=== PATIENT | male | born 1945 | race Caucasian/White ===

== ENCOUNTER 2019-07-07 09:45 | Outpatient (CLI) | payer MEDICARE, BC ==
[2019-07-07 11:12] LABS: BASOPHILS # (AUTO) 0.06 x10^3/uL (0-0.1); BASOPHILS % (AUTO) 1 % (0-1); EOSINOPHILS # (AUTO) 0.04 x10^3/uL (0-0.4); EOSINOPHILS % (AUTO) 1 % (1-7); LYMPHOCYTES # (AUTO) 1.38 x10^3/uL (1-3.4); LYMPHOCYTES % (AUTO) 26 % (22-44); MD NO; MEAN CORPUSCULAR HGB CONC 33.3 g/dL (33.2-36.2); MEAN PLATELET VOLUME 7.6 fL (7.4-10.4); MONOCYTES # (AUTO) 0.51 x10^3/uL (0.2-0.8); MONOCYTES % (AUTO) 10 % (2-9); NEUTROPHILS # (AUTO) 3.35 x10^3/uL (1.8-6.8); NEUTROPHILS % (AUTO) 63 % (42-75); PLATELET COUNT 175 x10^3/uL (130-400); RED BLOOD COUNT 4.75 x10^6/uL (4.38-5.82); RED CELL DISTRIBUTION WIDTH 13.9 % (9.4-14.8)
[2019-07-07 11:23] LABS: INTERNATIONAL NORMALIZED RATIO 0.98 (0.93-1.1); PROTHROMBIN TIME 10.4 Seconds (9.6-11.5)
[2019-07-07 11:25] LABS: ALANINE AMINOTRANSFERASE 26 U/L (12-78); ALBUMIN 3.8 g/dL (3.4-5.0); ANION GAP 4 mmol/L (5-15); CHLORIDE 107 mmol/L (98-107); CREATININE 1.12 mg/dL (0.7-1.3)
[2019-07-07 11:27] LABS: ALKALINE PHOSPHATASE 57 U/L (45-117); BILIRUBIN,TOTAL 0.6 mg/dL (0.2-1.0); TOTAL PROTEIN 7.1 g/dL (6.4-8.2)
[2019-07-07] MEDS ORDERED: INSU100C SQ-INSULIN (12:47)
[2019-07-07] MEDS ORDERED: TAMS-11 PO (15:42)
[2019-07-07] MEDS ORDERED: ALBU90AE2 INH (15:42)
[2019-07-07] MEDS ORDERED: ASPI-496 PO (15:42)
[2019-07-07] MEDS ORDERED: ROSU40TA PO (15:42)
[2019-07-07] MEDS ORDERED: VALS160T3 PO (15:42)
[2019-07-07] MEDS ORDERED: LORA10TA75 PO (15:42)
== END 2019-07-07 23:59 | disposition home or self-care (01) ==
LOC: STAR 09:45
PROVIDERS: ATTEND Orthopaedic Surgery
DX: Z01.818 Encounter for other preprocedural examination (principal); M16.11 Unilateral primary osteoarthritis, right hip
CPT/HCPCS: 36415; 80053; 83036; 85025; 85610; 85730; 87081; 93005

== ENCOUNTER 2019-07-14 06:48 | Observation (INO) | payer MEDICARE, BC ==
[~2019-07-14] VITALS: Ht 175.3 cm; Wt 87.2 kg
[~2019-07-14 06:48] MED LIST: ACETAMINOPHEN 650 MG/20.3 ML UDC PO PRN; ALBU90AE2 INH; ASPI-496 PO; BISACODYL 10 MG SUPP PR PRN; DIPHENHYDRAMINE 25 MG CAPSULE PO PRN; EPINEPHRINE 1 MG/ML, 1ML ONE; HYDROcodone/APAP 5/325 TABLET PO PRN; INSU100C SQ-INSULIN; KETOROLAC 60 MG/2 ML ONE; LORA10TA75 PO; MAGNESIUM HYDROXIDE 8%, 30ML UDC PO PRN; ONDANSETRON 2MG/ML, 2ML IV PRN; ONDANSETRON 4 MG TABLET PO PRN; ROPIvacaine/PF 0.5%, 20 ML ONE; ROPIvacaine/PF 0.5%, 30 ML ONE; ROSU40TA PO; SENNA/DOCUSATE TABLET PO PRN; SODIUM CHLORIDE 0.9% 50 ML ONE; TAMS-11 PO; TRANEXAMIC ACID 100 MG/ML, 10ML ONE; VALS160T3 PO; VANCOMYCIN 1,000 MG ONE; ZOLPIDEM 5MG TABLET PO PRN
[2019-07-14] MEDS: INSULIN LISPRO 100 UNITS/ML, PEN SQ-INSULIN SCH ×4 (07:00→21:44)
[2019-07-14] MEDS ORDERED: FENTANYL PF 250 MCG/5ML ONE (07:20)
[2019-07-14] MEDS ORDERED: LACTATED RINGERS 1,000 ML IV SCH (07:35)
[2019-07-14 07:39] VITALS: BP 126/76
[2019-07-14] MEDS ORDERED: GABAPENTIN 300 MG CAPSULE PO ONE (08:00)
[2019-07-14] MEDS ORDERED: ACETAMINOPHEN 500 MG TABLET PO ONE (08:00)
[2019-07-14] MEDS ORDERED: hydrALAzine 20 MG/ML, 1ML ONE (08:22)
[2019-07-14] MEDS ORDERED: PROPOFOL 10 MG/ML, 20ML ONE (08:52)
[2019-07-14] MEDS ORDERED: CEFAZOLIN 1,000 MG ONE (08:52)
[2019-07-14] MEDS ORDERED: NEOSTIGMINE 1 MG/ML, 10ML ONE (08:52)
[2019-07-14] MEDS ORDERED: DEXAMETHASONE 4 MG/ML, 1ML ONE (08:52)
[2019-07-14] MEDS ORDERED: ONDANSETRON 2MG/ML, 2ML ONE (08:52)
[2019-07-14] MEDS ORDERED: GLYCOPYRROLATE 0.2MG/1ML, 5ML ONE (08:52)
[2019-07-14] MEDS ORDERED: LIDOCAINE-MPF 2% ,5ML ONE (08:52)
[2019-07-14] MEDS ORDERED: SUCCINYLCHOLINE 20 MG/ML, 10ML ONE (08:52)
[2019-07-14] MEDS ORDERED: ROCURONIUM 10MG/ML,5ML ONE (08:52)
[2019-07-14] MEDS ORDERED: OXYcodone 5 MG/5 ML ORAL.SOL UDC PO PRN (09:00)
[2019-07-14] MEDS ORDERED: HYDROmorphone 2 MG/ML, 1ML IVPush PRN (09:00)
[2019-07-14] MEDS ORDERED: PROMETHAZINE 25 MG/ML, 1ML IV PRN (09:00)
[2019-07-14] MEDS ORDERED: FENTANYL PF 100 MCG/2ML IV PRN (09:00)
[2019-07-14] MEDS ORDERED: hydrALAzine 20 MG/ML, 1ML IV PRN (09:00)
[2019-07-14] MEDS ORDERED: MIDAZOLAM 1 MG/ML, 2ML IV PRN (09:00)
[2019-07-14] MEDS: VALSARTAN 160 MG TABLET PO SCH (09:00)
[2019-07-14] MEDS ORDERED: METOPROLOL 1 MG/ML, 5ML IV PRN (09:00)
[2019-07-14] MEDS: LORATADINE 10 MG TABLET PO SCH (09:00)
[2019-07-14] MEDS ORDERED: MEPERIDINE/PF 25MG/ML,1ML IVPush PRN (09:00)
[2019-07-14] MEDS ORDERED: ALBUTEROL/IPRATROPIUM 2.5MG/0.5MG, 3 ML NPPB PRN (09:00)
[2019-07-14] MEDS: DOCUSATE 100 MG CAPSULE PO SCH ×2 (09:00→21:49)
[2019-07-14] MEDS ORDERED: PROMETHAZINE 25 MG/ML, 1ML ONE (10:06)
[2019-07-14] MEDS ORDERED: ALBUTEROL SULFATE INH PRN (13:30)
[2019-07-14] MEDS: CEFAZOLIN PMX 2GM/50ML 50 ML IVPB SCH (16:59)
[2019-07-14] MEDS: ASPIRIN 81 MG TABLET EC PO SCH ×2 (16:59→22:10)
[2019-07-14] MEDS: TAMSULOSIN 0.4 MG CAP.ER.24H PO SCH (16:59)
[2019-07-14] MEDS: NS + 20MEQ KCL 1,000 ML IV SCH (17:00)
[2019-07-14] MEDS: OXYcodone IR 5MG TABLET PO PRN ×2 (17:06→21:51)
[2019-07-14] MEDS ORDERED: ATORVASTATIN 80 MG TABLET PO SCH (21:00)
[2019-07-14 21:33] VITALS: BP 125/66
[2019-07-15] MEDS: CEFAZOLIN PMX 2GM/50ML 50 ML IVPB SCH (01:04)
[2019-07-15 01:07] VITALS: BP 111/56
[2019-07-15] MEDS: OXYcodone IR 5MG TABLET PO PRN ×2 (02:01→07:42)
[2019-07-15] MEDS: NS + 20MEQ KCL 1,000 ML IV SCH (04:30)
[2019-07-15] MEDS: ASPIRIN 81 MG TABLET EC PO SCH (06:43)
[2019-07-15] MEDS: INSULIN LISPRO 100 UNITS/ML, PEN SQ-INSULIN SCH (07:00)
[2019-07-15 07:30] VITALS: BP 125/69
[2019-07-15] MEDS: LORATADINE 10 MG TABLET PO SCH (07:42)
[2019-07-15] MEDS: TAMSULOSIN 0.4 MG CAP.ER.24H PO SCH (07:42)
[2019-07-15] MEDS: DOCUSATE 100 MG CAPSULE PO SCH (07:42)
[2019-07-15] MEDS: VALSARTAN 160 MG TABLET PO SCH (07:43)
[2019-07-15] MEDS ORDERED: OXYC5CAP2 PO (08:37)
[2019-07-15] MEDS ORDERED: TRAM50TA2 PO (08:38)
[2019-07-15] MEDS ORDERED: MELO7.5T31 PO (08:38)
== END 2019-07-15 10:55 | disposition home or self-care (01) ==
LOC: OUT 06:48 → 4NE 13:06 → OUT 23:33 → 4NE 23:35 → DCLOUNGE 07-15 10:43
PROVIDERS: ADMIT Orthopaedic Surgery; ATTEND Orthopaedic Surgery
DX: M16.11 Unilateral primary osteoarthritis, right hip (principal); E11.9 Type 2 diabetes mellitus without complications; I10 Essential (primary) hypertension; F10.10 Alcohol abuse, uncomplicated; E78.5 Hyperlipidemia, unspecified; J44.9 Chronic obstructive pulmonary disease, unspecified; Z87.891 Personal history of nicotine dependence; Z79.899 Other long term (current) drug therapy
CPT/HCPCS: 27130; 36415; 72170; 73501; 76000; 82962; 85014; 85018; 96365; 96366; 97161; 97166; C1713; C1776; G0378; J0171; J0330; J0360; J0690; J1100; J1885; J2405; J2704; J2710; J2795; J3010; J3370; J3480; J3490; J7120